=== PATIENT | female | born 1985 | race Caucasian/White ===

== ENCOUNTER 2018-09-09 09:30 | Outpatient (CLI) | payer MEDICAID ==
[2018-09-09 19:52] LABS: BILIRUBIN,URINE NEGATIVE (NEGATIVE); GLUCOSE, URINE (UA) NEGATIVE (NEGATIVE); KETONES,URINE (UA) NEGATIVE (NEGATIVE); LEUKOCYTE ESTERASE, URINE NEGATIVE (NEGATIVE); NITRITE,URINE NEGATIVE (NEGATIVE); OCCULT BLOOD,URINE NEGATIVE (NEGATIVE); PH,URINE 5.5 PH (5.0-7.5); PROTEIN,URINE NEGATIVE (NEGATIVE); UROBILINOGEN,URINE 0.2 (NORMAL) E.U./dL (NORMAL)
[2018-09-09 20:30] LABS: BACTERIA,URINE None Seen /HPF (None Seen); CLARITY,URINE CLEAR (CLEAR); RBC,URINE None Seen /HPF (0-5); SQUAMOUS EPITHELIAL CELL,UR MOD Squamous (<= Few)
== END 2018-09-09 23:59 | disposition home or self-care (01) ==
LOC: LAB.R 09:30
PROVIDERS: ATTEND Nurse Practitioner
DX: R35.8 Other polyuria (principal)
CPT/HCPCS: 81001

== ENCOUNTER 2018-09-10 09:10 | Outpatient (CLI) | payer MEDICAID ==
[2018-09-12 16:01] LABS: VARICELLA ZOSTER VIRUS IGM 0.86
== END 2018-09-10 09:11 | disposition home or self-care (01) ==
LOC: LAB.F 09:10
PROVIDERS: ATTEND Nurse Practitioner
DX: R35.8 Other polyuria (principal); Z71.89 Other specified counseling
CPT/HCPCS: 36415; 81001; 81599; 86705; 86787

== ENCOUNTER 2018-09-12 10:32 | Outpatient (CLI) | payer MEDICAID | END 2018-09-12 10:33 | disposition home or self-care (01) | LOC: LAB 10:32 | PROVIDERS: ATTEND Nurse Practitioner | DX: Z71.89 Other specified counseling (principal) | CPT/HCPCS: 36415; 81599; 86480 ==